=== PATIENT | male | born 1980 | race Caucasian/White ===

== ENCOUNTER 2019-01-23 15:25 | Emergency (ER) | payer SELFPAY ==
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
[2019-01-23 16:13] VITALS: BP 139/78; PULSE 87; TEMP 98.7; BMI 35.2
--- NOTE | 2019-01-23 16:48 | PDOC ---
History of Present Illness - General Chief Complaint: Suture/Staple Removal (other) Stated Complaint: REMOVE STITCHES Time Seen by Provider: 01/23/19 15:58 - History of Present Illness Initial Comments: 01/23/19 16:46 38-year-old male presents for suture removal from his scalp sutures were placed 10 days ago at [facility]. Past History - Past Medical History Allergies/Adverse Reactions: Allergies Allergy/AdvReac Type Severity Reaction Status Date / Time No Known Allergies Allergy Verified 01/23/19 15:59 Home Medications: Ambulatory Orders NK [No Known Home Medication] 01/23/19 - Suicide/Smoking/Psychosocial Hx Smoking History: Never smoked Review of Systems - Review of Systems Constitutional: Yes: See HPI *Physical Exam - Vital Signs Last Vital Signs Temp Pulse Resp BP Pulse Ox 98.7 F 87 16 139/78 99 01/23/19 16:06 01/23/19 16:06 01/23/19 16:06 01/23/19 16:06 01/23/19 16:06 - Physical Exam Comments: 01/23/19 16:46 There is about a 5 cm laceration which was repaired with Prolene in a running fashion on the left parietal scalp no surrounding erythema warmth or induration. There is a small hematoma adjacent to the wound. There is a large eschar in place. The wound is well-healed the sutures are oriented in baseball stitch fashion. 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 *DC/Admit/Observation/Transfer Diagnosis at time of Disposition: Visit for suture removal - Discharge Dispostion Disposition: HOME Condition at time of disposition: Stable Decision to Admit order: No - Referrals - Patient Instructions Printed Discharge Instructions: DI for Suture Removal Additional Instructions: Return to the emergency room should you experience any drainage or increasing pain or swelling to the area. Keep the wound clean and dry for the next 48 hours. After 48 hours and may wash with soap and water and leave the area open to air. Do not take off the scab. - Post Discharge Activity
== END 2019-01-23 16:59 | disposition home or self-care (01) ==
LOC: JERFT 15:25
DX: Z48.817 Encounter for surgical aftercare following surgery on the skin and subcutaneous tissue (principal); Z48.02 Encounter for removal of sutures
CPT/HCPCS: 99281-25

== ENCOUNTER 2024-07-11 15:47 | Emergency (ER) | payer OTHER ==
[2024-07-11 15:52] VITALS: BP 133/93; PULSE 99; RESP 18; TEMP 98.9; BMI 37.8
[2024-07-11] MEDS ORDERED: ACETAMINOPHEN 500 MG TABLET (FP) ONE (18:31)
[2024-07-11] MEDS ORDERED: KETOROLAC TROMETHAMINE 30 MG/1 ML VIAL ONE (18:31)
[2024-07-11] MEDS: ACETAMINOPHEN 500 MG TABLET (FP) PO ONE (18:36)
[2024-07-11] MEDS: KETOROLAC TROMETHAMINE 30 MG/1 ML VIAL IM ONE (18:36)
== END 2024-07-11 20:05 | disposition home or self-care (01) ==
LOC: JER 15:47 → JERFT 15:47
PROC: 3E0133Z Introduction of Anti-inflammatory into Subcutaneous Tissue, Percutaneous Approach (ICD-10-PCS; principal; 2024-07-11)
DX: M25.461 Effusion, right knee (principal); M17.11 Unilateral primary osteoarthritis, right knee
CPT/HCPCS: 72100-TC-FY; 73562-TC-RT-FY; 99284-25